=== PATIENT | female | born 1995 | race Caucasian/White ===

== ENCOUNTER 2017-03-19 10:03 | Emergency (ER) | payer MEDICAID ==
[~2017-03-19] VITALS: Ht 170.2 cm; Wt 64.3 kg
[2017-03-19 10:15] VITALS: BP 113/69
== END 2017-03-19 14:14 | disposition home or self-care (01) ==
LOC: ED 13:50
DX: R07.89 Other chest pain (principal)
CPT/HCPCS: 71010; 99283